=== PATIENT | female | born 1950 | race Caucasian/White ===

== ENCOUNTER 2025-04-22 11:47 | Outpatient (REF) | payer OTHER, MEDICARE, SELFPAY ==
--- OUTSIDE RECORDS SUMMARY | 2025-02-19 09:45 | XMS_ITS ---
Author Organization [facility] Address [address] [place] [address] Care Team Providers Care Artifacts Conservator Name Role Phone Joesph Garcia Primary Care Provider UnaLeatha Shaw Unavailable [phone] Encounters Encounter Location Date Provider Diagnosis [facility] [address] [place] [phone] 02/19/2025 Leatha Balbuena Plan Of Treatment No Information Progress Notes * Lindsey HOPKINS EDOB:[birth year] (75 yo F)Acc No.[id number]:02/19/2025 Progress Notes Patient: Lindsey GREER Provider: Bello Balbuena DPM :1950 A ge:74 Y S ex:Female Date:02/19/2025 Address:[address] [place], [place] [id number] Pcp:Joesph Garcia Subjective: * Chief Complaints: * * Medical History: Objective: * Vitals: Assessment: Plan: * Treatment: * Images: * The named appointment provid er may or may not be the originator of this progress note, and it is not deemed complete until electronically signed by the appointment provider. Sign off status: Pending * Provider: Bello Balbuena DPM Date: 0 02/19/2025 Generated for Printi ng/Faxing/eTransmitting on: 04/22/2025 12:57 PM EDT
--- NOTE | ~2025-04-22 | XR_ITS ---
EXAMINATION: XR KNEE, JEANIE 3V CLINICAL INFORMATION: M25.561 - Pain in right knee COMPARISON: None available. TECHNIQUE: AP view bilateral knees standing, lateral and patellofemoral views bilateral knees. FINDINGS: RIGHT KNEE: No fracture, dislocation, or suspicious bone lesion. Normal mineralization. 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 There is spurring of the tibial spines. There is marked superior patellar spurring There is mild patella jaron. There is no significant joint effusion. There is no focal soft tissue abnormality. LEFT KNEE: No fracture, dislocation, or suspicious bone lesion. Normal mineralization. Tricompartmental osteoarthrosis, severe in the medial compartment, with subchondral sclerosis and marginal osteophytic spurring in all 3 compartments. There is spurring of the tibial spines. There is no significant joint effusion. There is no focal soft tissue abnormality. XR/XR knee RT 3V IMPRESSION: 1. No acute bony abnormalities of either knee. No significant joint effusions. 2. Significant tricompartmental osteoarthritic changes left greater than right, with [id number] appearance in the left medial compartment. Near [id number] in the right medial compartment. Electronically signed by: Harman De Jesus MD 04/22/2025 02:27 PM EDT
--- NOTE | ~2025-04-22 | XR_ITS ---
EXAMINATION: XR KNEE, JEANIE 3V CLINICAL INFORMATION: M25.561 - Pain in right knee COMPARISON: None available. TECHNIQUE: AP view bilateral knees standing, lateral and patellofemoral views bilateral knees. FINDINGS: RIGHT KNEE: No fracture, dislocation, or suspicious bone lesion. Normal mineralization. 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 There is spurring of the tibial spines. There is marked superior patellar spurring There is mild patella jaron. There is no significant joint effusion. There is no focal soft tissue abnormality. LEFT KNEE: No fracture, dislocation, or suspicious bone lesion. Normal mineralization. Tricompartmental osteoarthrosis, severe in the medial compartment, with subchondral sclerosis and marginal osteophytic spurring in all 3 compartments. There is spurring of the tibial spines. There is no significant joint effusion. There is no focal soft tissue abnormality. XR/XR knee LT 3V IMPRESSION: 1. No acute bony abnormalities of either knee. No significant joint effusions. 2. Significant tricompartmental osteoarthritic changes left greater than right, with [id number] appearance in the left medial compartment. Near [id number] in the right medial compartment. Electronically signed by: Harman De Jesus MD 04/22/2025 02:27 PM EDT
--- OUTSIDE RECORDS SUMMARY | 2025-04-22 12:50 | XMS_ITS | Continuity of Care Document ---
Author Name [facility] Organization [facility] Care Team Providers Care Adjuster Leader Name Role Phone [facility] Unavailable Unavailable Medications Combined list of outpatient medications from Department of Defense and Veterans Affairs facilities.Medications provided include 1) outpatient medications from the last 15 months, and 2) patient-reported medications. Medication Details Route Status Patient Instructions Prescription Expires Prescription Number Last Dispense Date Ordering Provider Order Date Order Qty Source BENZONATATE (benzonatat e), 100 MG, CAPSULE, ORAL, STRIDES PHARMA, 500 ea. BOTTLE Active [id number] 2023 30 Pharmac y Data Transac tion Service Facilit y FLUVOXAMINE MALEATE (FLUVOXAMIN E MALEATE), 50 MG, TABLET, ORAL, ANI PHARMACEUTI , 100 ea. BOTTLE Active [id number] 4 2023 90 Pharmac y Data Transac tion Service Facilit y LORAZEPAM (lorazepam) , 0.5 MG, TABLET, ORAL, LEADING PHARMA, 100 ea. BOTTLE Active [id number] 2023 45 Pharmac y Data Transac tion Service Facilit y NAYZILAM (midazolam) , 5 MG/SPRAY, SPRAY, NASAL, UCB PHARMA, 2 ea. SQUEEZ BTL Cancele d [id number] : 2023 0 Pharmac y Data Transac tion Service Facilit y NAYZILAM (midazolam) , 5 MG/SPRAY, SPRAY, NASAL, UCB PHARMA, 2 ea. SQUEEZ BTL Cancele d [id number] : 2023 0 Pharmac y Data Transac tion Service Facilit y NAYZILAM (midazolam) , 5 MG/SPRAY, SPRAY, NASAL, UCB PHARMA, 2 ea. SQUEEZ BTL Cancele d [id number] : 2023 0 Pharmac y Data Transac tion Service Facilit y Immunizations Combined list of available immunizations from the Department of Defense and Veterans Affairs facilities. Immunization Series Date Given Administered By Site Reaction Lot Number CVX Code Drug Nip Wrapper Status Comments Source COVID-19, mRNA, LNP-S, PF, 100 mcg or 50 mcg dose 2021 VEGAS, Moderna US[employer] (MOD) Not Given COVID-19, mRNA, LNP-S, PF, 100 mcg or 50 mcg dose DoD COVID-19, mRNA, LNP-S, PF, 100 mcg or 50 mcg dose 2020 ONEY, Moderna Photozeen[employer] (MOD) Not Given COVID-19, mRNA, LNP-S, PF, 100 mcg or 50 mcg dose DoD zoster recombinant 2017 Liz MENDEZ () Not Given zoster recombina nt DoD Influenza, high dose seasonal 2015 CADE STROUD () Not Given Influenza , high dose seasonal DoD Tdap 2013 RONIT JULIO () Not Given Tdap DoD Social History Combined list of available smoking, tobacco, and other social history from Department of Defense and Veterans Affairs facilities. Social History Type Response Date Comment [facility] e This section is an empty social history section. DoD
--- OUTSIDE RECORDS SUMMARY | 2025-04-22 12:57 | XMS_ITS | Clinical Summary ---
Author Organization [facility] Address [address] [place] [address] Care Team Providers Care Solution Architect Name Role Phone Joesph Garcia MD Primary Care Provider [phone] Medical History Medical History Date Comments Essential hypertension DX:Essent ial hypertension Seizure disorder (CMS/HCC V24, CMS/HCC V28) DX:Seizure disorder (HCC) Esophageal reflux DX:Esophageal reflux Anxiety state DX:Anxiety state Depressive disorder DX:Depressiv e disorder Asthma DX:Asthma Hyperlipidemia DX:Hyperlipidemi a Post-nasal drip DX:Post-nasal dr ip Social History Tobacco Use Types Packs/Day Years Used Date Smoking Tobacco: Never Smokeless Tobacco: Never Alcohol Use Standard Drinks/Week Comments Never 0 (1 standard drink = 0.6 oz pur e alcohol) Comments Unknown Sex and Gender Information Value Date Recorded Sex Assigned at Not on file Legal Sex Female 2:54 AM EST Gender Identity Not on file Sexual Orientation Not on file Obstetrics History Last Filed Vital Signs Vital Sign Reading Time Taken Comments Blood Pressure 148/82 01/17/2022 11:52 AM EDT Si tting L Arm Pulse 75 01/17/2022 11:52 AM EDT Temperature - - Respiratory Rate - - Oxygen Saturation - - Inhaled Oxygen Concentration - - Weight 113 kg (250 lb) 07/24/2023 10:51 AM EST Height 157.5 cm (5' 2 ) 07/24/2023 10:51 AM EST Body Mass Index 45.73 07/24/2023 10:51 AM EST Plan of Treatment Health Maintenance Due Date Last Done Comments Pneumococcal Vaccine: 50+ Years (1 of 1 - PCV) 1999 Zoster Vaccines (1 of 2) 1999 Cholesterol Screening (Lipid Panel) 07/29/2022 Falls Risk Assessment 07/29/2022 Hepatitis C Screening 07/29/2022 Osteoporosis Screening (Bone Density Screening) 07/29/2022 Social Influencers of Health Screening 07/29/2022 RSV Immunization Adult Patients (1 - 1-dose 75+ series) 2024 COVID-19 Vaccine (1 - 2023-2 5 season) 2024 Depression Screening 08/26/2024 Influenza Vaccine (#1) 2025 3, 05/10/2021, 06/13/2020 DTaP,Tdap,and Td Vaccines (2 - Td or Tdap) 04/04/2032 04/04/2022 Breast Cancer Screening Discontinued 05/23/20 21, 05/09/2020, 02/05/2019 HIB Vaccines Aged Out No longer eligi ble based on patient's age to complete this topic HPV Vaccines Aged Out No longer eligi ble based on patient's age to complete this topic Hepatitis A Vaccines Aged Out No long er eligible based on patient's age to complete this topic Hepatitis B Vaccines Aged Out No long er eligible based on patient's age to complete this topic IPV Vaccines Aged Out No longer eligi ble based on patient's age to complete this topic MMR Vaccines Aged Out No longer eligi ble based on patient's age to complete this topic Meningococcal ACWY Vaccine Aged Out N o longer eligible based on patient's age to complete this topic Meningococcal B Vaccine Aged Out No l onger eligible based on patient's age to complete this topic RSV Immunization Patients Under 20 months Aged Out No longer eligible based on patient's age to complete this topic Varicella Vaccines Aged Out No longer eligible based on patient's age to complete this topic Procedures Procedure Name Priority Date/Time Associated Diagnosis Comments KARLOS SCREENING DIGITAL Routine 05/23/2021 6:23 PM EDT Encounter for screening mammogram for malignant neoplasm of breast from Last 3 Months or Most Recently Relevant to Health Maintenance Results * KARLOS SCREENING DIGITAL (05/23/2021 6:23 PM EDT) Anatomical Region Laterality Modality Mammography 05/23/2021 2:47 PM EDT Narrative 05/23/2021 6:23 PM EDT [facility] Diagnostic Imaging Department [address] [place] [address] Patient: LINDSEY HOPKINS Aureliano /Age/Sex: 1950 - 71 - F Unit#: [id number] Location/Status: [facility] Mnemonic/Ordering Site: [facility] Ordering Physician: JEANNINE COOPER MD Karlos Screening Digital - 05/23/21 - 1533 History: Bilateral breast cancer screening. Technique: Digital mammography. Conventional CC and MLO projections with tomosynthesis MLO views and computer aided detection. Comparison: [facility] and outside mammography 05/09/2020 through 11/25/2014. Findings: Breast tissue consists of a combination of fatty and fibroglandular elements (category b density) (as calculated by iReveal Volpara software). There are benign calcifications bilaterally. No suspicious group of calcification, architectural distortion, suspicious mass or suspicious asymmetry. Impression: No evidence of malignancy. BIRADS Category 2, benign findings, 3342F 03721, 93852 Note: Patient information entered into a reminder system with a target due date for the next mammogram: CPT II 7025F Dictating Physician: ISAAC MCMULLEN MD Electronically Signed by: ISAAC MCMULLEN MD Dic Date/Time: 05/23/211818 Sign date/Time: 05/23/211822 Procedure Note Isaac Mcmullen MD - 08/22/2022 [facility] Diagnostic Imaging Department [address] [place] [address] Patient: LINDSEY HOPKINS Aureliano /Age/Sex: 1950 - 71 - F Unit#: [id number] [facility] CLI Mnemonic/Ordering Site: [facility] Ordering Physician: JEANNINE COOPER MD Karlos Screening Digital - 05/23/21 - 153 History: Bilateral breast cancer screening. Technique: Digital mammography. Conventional CC and MLO projections with tomosynthesis MLO views and computer aided detection. Comparison: [facility] and outside mammography 05/09/2020through 11/25/2014. Findings: Breast tissue consists of a combination of fatty andfibroglandular elements (category b density) (as calculated by iReveal Volpara software).There are benign calcifications bilaterally. No suspicious group ofcalcification, architectural distortion, suspicious mass or suspicious asymmetry. Impression: No evidence of malignancy. BIRADS Category 2, benign findings, 3342F [address]8020, [address] Note: Patient information entered into a reminder system with a target duedate for the next mammogram: CPT II 7025F Dictating Physician: ISAAC MCMULLEN MD Electronically Signed by: ISAAC MCMULLEN MD Dic Date/Time: 05/23/211818 Sign date/Time: 05/23/211822 us Jeannine Abrams MD IMG BI PROCEDURES Final Result from Last 3 Months or Most Recently Relevant to Health Maintenance Advance Directives Documents on File Type Date Recorded Patient Distillation Operator Helper Expl anation Health Care Decision (hx) 06/27/2019 AD BLANCA DIRECTIVE Health Care Decision (hx) 06/27/2019 AD BLANCA DIRECTIVE Health Care Decision (hx) 06/27/2019 AD BLANCA DIRECTIVE Health Care Decision (hx) 06/27/2019 AD BLANCA DIRECTIVE Health Care Decision (hx) 06/27/2019 AD BLANCA DIRECTIVE Health Care Decision (hx) 06/27/2019 AD BLANCA DIRECTIVE Health Care Decision (hx) 06/27/2019 AD BLANCA DIRECTIVE Health Care Decision (hx) 06/27/2019 AD BLANCA DIRECTIVE Health Care Decision (hx) 06/27/2019 AD BLANCA DIRECTIVE Health Care Decision (hx) 06/27/2019 AD BLANCA DIRECTIVE Health Care Decision (hx) 06/27/2019 AD BLANCA DIRECTIVE Health Care Decision (hx) 06/27/2019 AD BLANCA DIRECTIVE Health Care Decision (hx) 06/27/2019 AD BLANCA DIRECTIVE Health Care Decision (hx) 06/27/2019 AD BLANCA DIRECTIVE Health Care Decision (hx) 06/27/2019 AD BLANCA DIRECTIVE Health Care Decision (hx) 06/27/2019 AD BLANCA DIRECTIVE Health Care Decision (hx) 06/27/2019 AD BLANCA DIRECTIVE Care Teams Solution Architect Relationship Specialty Start Date End Date Joesph Garcia MD [address] [place] [phone] PCP - General Internal Medicine 07/10/21
--- OUTSIDE RECORDS SUMMARY | 2025-04-22 12:57 | XMS_ITS | Patient Health Record ---
[facility] Organization [facility] Address [address] [place] [address] Care Team Providers Care Lithograph Press Operator Name Role Phone Joesph Garcia Primary Care Provider Leatha Rod Unavailable [phone] Allergies Allergen (clinical drug ingredient) Drug/Non Drug Allergy documented on EMR Reaction Allergy Type Onset Date Status ciprofloxacin Cipro depression Drug Allergy Ac tive hydromorphone Dilaudid Unknown Drug Allergy Act mandy Levaquin depression Drug Allergy Active metoprolol Toprol XL Unknown Drug Allergy Active Reason For Referral No Information Medications Medication SIG (Take, Route, Frequency, Duration) Notes Start Date End Date Status traZODone HCl Not-Ta cam Walking Boot/Pneumatic As directed Wear Daily; Duration: Until further notice 11/19/2017 Not-Taking fluvoxaMINE Maleate Active Accupril 40mg Not-Ta cam hydroCHLOROthiazide 25 MG 1 tablet in th e morning Orally Once a day; Duration: 30 day(s) Active Lacosamide Active levETIRAcetam Active Lisinopril 40 MG Orally Act mandy Lorazepam 0.5 Active Omeprazole 20 MG Orally Act mandy Nayzilam Active Nystatin-Triamcinolone Active OXcarbazepine 300 MG as directed Orally Not-Taking PreserVision AREDS 2 Active Robitussin DM Active Simvastatin 20 MG as directed Orally Active Triamcinolone & Emollient Active Tylenol Active ProAir HFA Active Vitamin B Complex Ac tive Advair HFA Active Vitamin D3 Active Albuterol Active Wellbutrin Not-Takin g Ativan 0.5 MG 1 tablet at bedtime as needed Orally Not-Taking Flovent Diskus Not-T aking Botox Active Fluticasone Propionate Not-Taking Immunizations Vaccine Route Administration Date Status Comme nts COVID-19 Moderna Vaccine Unknown 05/17/2022 Administered 2020,2020 2020,2021 Social History Tobacco Use: Social History Observation Description Date Details (start date - stop date) Never Smoker NA - NA Tobacco Use/Smoking Question Answer Notes Are you a: nonsmoker Additional Findings: Tobacco Non-User Current no n-smoker Alcohol Screen Question Answer Notes Did you have a drink containing alcohol in the p ast year? No Points 0 Interpretation Negative Tobacco use other than smoking: Question Answer Notes Are you an other tobacco user? No Problems Problem Type SNOMED Code ICD Code Onset Dates Problem Status W/U Status Risk Notes Problem Localized, primary osteoarthritis of the ankle and/or foot (751208008) Primary osteoarthritis , left ankle and foot (M19.072) Active confirmed Problem Acquired hammer toe of right foot (5325993651351205) Other hammer toe(s) (acquired), right foot (M20.41) Active confirmed Problem Acquired hammer toe of left foot (3162353369598934) Other hammer toe(s) (acquired), left foot (M20.42) Active confirmed Problem Neuropathy (118286063) Neuropathy (G62.9) Active confirmed Problem Stress fracture of right foot with delayed healing (M84.374G) Active confirmed Problem 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 confirmed Problem Ataxia () Ataxia (R27.0) Active confirm ed Vital Signs Heart Rate 65 /min 01/22/2025 Blood pressure diastolic 85 mm Hg 01/22/2025 Height 5ft 2in in 01/22/2025 Blood pressure systolic 145 mm Hg 01/22/2025 Weight 240 lbs 01/22/2025 BMI 43.89 kg/m2 01/22/2025 Encounters Encounter Location Date Provider Diagnosis [facility] [address] [phone] 01/22/2025 Leatha Oconnoraker Pain in left foot M79.672 ; Pain in left ankle and joints of left foot M25.572 ; Bursitis of intermetatarsal bursa of left foot M77.52 ; Metatarsalgia, left foot M77.42 ; Pronation deformity of right foot M21.6X1 and Ataxia R27.0 [facility] [address] [address] 02/15/2025 Leatha Balbuena Assessments Encounter Date Diagnosis (ICD Code) Assessment Notes Treatment Notes Treatment Clinical Notes Section Notes 01/22/2025 Pain in left ankle and joints of left foot (ICD-10 - M25.572) 01/22/2025 Pain in left foot (ICD-10 - M79.672) 01/22/2025 Bursitis of intermetatarsal bursa of left foot (ICD-10 - M77.52) 01/22/2025 Metatarsalgia, left foot (ICD-10 - M77.42) 01/22/2025 Pronation deformity of right foot (ICD-10 - M21.6X1) 01/22/2025 Ataxia (ICD-10 - R27.0) Plan Of Treatment Pending Test Test Name Order Date MRI : Foot, right 12/17/2017 X ray : Foot, left 3V 01/22/2025 X ray : Foot, right 3V 11/19/2017 X ray : Foot, right 3V 12/17/2017 96730, [id number]/INJECT, JOINT/BURSA 0 01/03/2017 77743, [id number]/INJECT, JOINT/BURSA 0 12/27/2017 X ray : Ankle, right 3V 12/17/2017 Insurance Providers Payer Name Payer Address Payer Phone Subscriber Number Group Number Insured Name Patient Relationship to Insured Coverage Start Date Coverage End Date Medicare National [employer]t S[employer] [address] [place] [phone] [id number] Lindsey Winn Self - patient is the insured [employer] [address] [place] [phone] [id number] Jcarlos Winn Spouse - patient is the spouse of the insured Medical (General) History Medical History History ICD Code Anxiety Arthritis asthma Chicken pox Measles Mumps Depression Hypertension Nerve disease Scarlet fever Joint implants/screws Back,Hip,and Knee pain Broken bones Cholesterol Cancer Cataracts Epilepsy Seizures High blood pressure Neuropathy Psychiatric disorder Reflux ( GERD) Sciatica Bone implants/screws Transfusions Surgical History Surgery Date(Month/Year) appendectomy 1963 bunionectomy hammer toe myomectomy Shoulder replacement 07/16 spine surgery tentomy eyelids- suspension + limited myectomy Jesús cataract removal 03/2022,10/2022 Hospitalization History Reason Date(Month/Year) [facility] hit head test done sameday 10/20/2022
== END 2025-04-22 11:48 | disposition home or self-care (01) ==
LOC: HO.HOSX 11:47
PROVIDERS: Visit Provider Orthopaedic Surgery
DX: M17.0 Bilateral primary osteoarthritis of knee (principal); M54.16 Radiculopathy, lumbar region; E66.01 Morbid (severe) obesity due to excess calories; Z96.611 Presence of right artificial shoulder joint; Z98.1 Arthrodesis status
CPT/HCPCS: 73562; 99202

== ENCOUNTER 2025-04-22 13:55 | Outpatient (AMB) | payer OTHER, MEDICARE, SELFPAY ==
--- NOTE | 2025-04-22 14:14 | MHC.OFFVIS ---
Intake Visit Reasons: New Patient - Bilateral Knee OA Intake Note: Lindsey is a 74 year old female who presents today for a New Patient visit with complaints of bilateral knee pain. She was previously seen at the [facility], where it is noted that she has bilateral knee OA and Degenerative OA of the spine. In February of this year she was given bilateral knee Injections these are helpful for about 2 months. She has had repeat injections for many years now. Recently her knees have started to buckle. Ambulates with a cane. As a child her feet were rolling out and had corrective shoes, she has done bracing which had increased pain when wearing these. She has been wearing very supportive shoes to help with this. She has episodes of sciatic pain is interested in possible Physical Therapy - Hx of spinal fusion of the lumbar spine. She sees a Relationship Consultant at the [facility]. She has been given knee braces but is unsure if they are helpful. She explains that she is frustrated as she is unsure what is the cause of her symptoms, she is unsure if this is her back, her knees or her ankles. She does not want surgery and she explains that she understands she is overweight and unable to get surgery due to BMI. She would like to understand where to start as she is falling more and increasing pain. Allergies levofloxacin (From Levaquin) Allergy (Mild, Unverified 05/12/20 17:50) UNKNOWN ciprofloxacin (From Cipro) Adverse Reaction (Unknown, Unverified 05/12/20 17:50) DEPRESSION hydromorphone (From Dilaudid) Adverse Reaction (Verified 04/22/25 14:25) low blood pressure From Cipro Adverse Reaction (Unknown, Uncoded 05/12/20 17:50) DEPRESSION From Toprol XL Adverse Reaction (Unknown, Uncoded 05/12/20 17:50) LOSES SHORT TERM MEMORY HPI HPI New Patient - Bilateral Knee OA: Details: Lindsey is a 74 year old female who presents today for a New Patient visit with complaints of bilateral knee pain. She was previously seen at the [facility], where it is noted that she has bilateral knee OA and Degenerative OA of the spine. In February of this year she was given bilateral knee Injections these are helpful for about 2 months. She has had repeat injections for many years now. Recently her knees have started to buckle. Ambulates with a cane. As a child her feet were rolling out and had corrective shoes, she has done bracing which had increased pain when wearing these. She has been wearing very supportive shoes to help with this. She has episodes of sciatic pain is interested in possible Physical Therapy - Hx of spinal fusion of the lumbar spine. She sees a Relationship Consultant at the [facility]. She does note severe back pain and occasional numbness and tingling She explains that she is frustrated as she is unsure what is the cause of her symptoms, she is unsure if this is her back, her knees or her ankles. She does not want surgery and she explains that she understands she is overweight and unable to get surgery due to BMI. She would like to understand where to start as she is falling more and increasing pain. She reports that she is able to walk for miles and recently walked 3 miles. Her primary worry is recent buckling. [facility] Surgical History (Updated 04/22/25 @ 14:26 by Alison Horton [facility]) History of left shoulder replacement History of lumbar spinal fusion Physical Exam Const General: cooperative, no acute distress, well developed and alert Nutritional Appearance: overweight HEENT Head: Yes normal to inspection, Yes normocephalic and Yes atraumatic Mouth: moist mucous membranes Eyes General: appearance normal, both eyes and all related structures EOM: EOMs intact bilaterally Chest Other: no audible wheezing. Resp Other: No audible wheezing Effort & Inspection: normal respiratory effort Cardio Other: Radial pulse palpable with no rythmic abnormalities Back/Spine/Pelvis Cervical Spine: normal cervical lordosis Skin General skin exam: no rashes or lesions noted Neuro General: no focal motor deficits Extrem Other: bilateral 1+ edema toes wwp with palpable pulse left knee with 10-100 deg of motion and right knee with 5-110 global knee ttp bilaterally Psych Appearance: grossly normal and well kempt Mental Status: mental status grossly normal Speech and movement: Normal speech and movement present Affect: normal affect Attitude: cooperative Results Reviewed Results Reviewed: I personally reviewed relevant radiographs. Severe bilateral knee OA Assessment & Plan Assessment & Plan (1) Bilateral primary osteoarthritis of knee: Code(s): M17.0 - Bilateral primary osteoarthritis of knee Category: Medical Plan: This is a very pleasant 75-year-old woman with longstanding history of bilateral knee pain. She has had multiple injections including gel and nothing has provided permanent relief. She remains active and up to a few weeks ago was able to walk 3 miles. Last 2 weeks however she has been having worsening pain and feels like her knee has been buckling. She also describes back pain and numbness and tingling in her legs that has been present for a long time. She denies bowel and bladder dysfunction. And lastly she does have bilateral lower extremity edema. We discussed treatment options. She does feel like she has exhausted injections and we discussed options of nerve stimulation as well as surgery. I described to her that arthroplasty has a role but I do think she would need to reduce some risk factors in order to safely proceed forward with surgery. Her primary risk factors are weight and her lower extremity swelling. I think the other variable is that she has a certain amount of radiculopathy that has been present for a long time. We discussed how to proceed forward and I think the best would be physical therapy for weight loss and her radiculopathy. I think we reviewed the BMI cut off and she currently would need to lose about 30-40 lb to be in the acceptable range. I would like to see her radiculopathy symptoms stephanie prior to surgical intervention and/or received treatment for that prior because at this point it is hard to tell what is limiting her ambulation more, her knees o her back. (2) Morbid obesity: Code(s): E66.01 - Morbid (severe) obesity due to excess calories Category: Medical Plan: BMI 44 (3) Lumbar radiculopathy: Code(s): M54.16 - Radiculopathy, lumbar region Category: Medical Plan: chronic Orders: Orders XR knee LT 3V 04/22/25 M25.562 - Pain in left knee XR knee RT 3V 04/22/25 M25.561 - Pain in right knee PT Evaluation and Treatment Today E66.01 - Morbid (severe) obesity due to excess calories, M17.0 - Bilateral primary osteoarthritis of knee, M54.16 - Radiculopathy, lumbar region Coding Level of Care Code New Pt Level 4 (09986) Diagnoses Bilateral primary osteoarthritis of knee M17.0 Morbid obesity E66.01 Lumbar radiculopathy M54.16
== END 2025-04-22 14:46 | disposition home or self-care (01) ==
LOC: HO.HOS 13:56
PROVIDERS: Visit Provider Orthopaedic Surgery
DX: M17.0 Bilateral primary osteoarthritis of knee (principal); E66.01 Morbid (severe) obesity due to excess calories; M54.16 Radiculopathy, lumbar region
CPT/HCPCS: 99204

== ENCOUNTER → 2025-04-22 14:05 | Outpatient (BNV) | payer OTHER, MEDICARE, SELFPAY | PROVIDERS: Visit Provider Radiology Diagnostic Radiology | DX: M25.562 Pain in left knee (principal); M25.561 Pain in right knee | CPT/HCPCS: 73562 ==